=== PATIENT | female | born 1995 | race Caucasian/White ===

== ENCOUNTER → 2018-05-18 | Outpatient (CLI) | payer BC ==
[2018-05-18 09:58] LABS: HEMOGLOBIN A1C 5.4 % (4.5-5.6)
== END | disposition home or self-care (01) ==
LOC: C.LAB1850 08:14
PROVIDERS: ATTEND Family Medicine
DX: Z13.220 Encounter for screening for lipoid disorders (principal); Z83.3 Family history of diabetes mellitus

== ENCOUNTER 2021-01-27 07:30 | Inpatient (IN) ==
--- NOTE | 2021-01-26 14:36 | Anesthesiology Consultation ---
Date of Service January 26, 2021 Assessment & Plan (1) Encounter for pre-operative examination: Chart Review Chart Review: licensed direct entry midwife initiated Pt is a surrogate for her best friend. Pt's will be in the hospital room with patient initially for support. When patient is taken to OR- plan is "patient's will wait in waiting room and patient's best friend (mother of the baby) will be in the delivery/OR room with patient." Once baby is delivered and taken for additional exams- baby's biological mother will go with while surrogate mother will remain in OR and then up to hospital room for recovery (her will join her there). Per nursing assessment 01/26/21, patient resides in [facility]. Travels to [facility] for grocery shopping. Wears proper PPE. No known Covid positive contacts or Covid related symptoms. No known Covid infection in the past 90 days. Preop Covid testing done 01/22/21= negative. History Surgery Operation Date: 01/27/21 07:30 Proposed Procedures p Section in LD - Rohan Kurtz MD Height/Weight Height: 5 ft 3 in Weight: 92.986 kg Allergies Allergy/AdvReac Type Severity Reaction Status Date / Time No Known Allergies Allergy Verified 01/26/21 14:05 Medications Home Medications Medication Instructions Recorded Confirmed Last Taken levothyroxine 50 mcg capsule 50 mcg PO QAM 07/14/20 01/26/21 Unknown prenat.vits,susie,[id number] 1 tab PO QAM 07/14/20 01/26/21 Unknown Past Medical History Medical History Hypothyroidism related Surrogate In Vitro for best friend. Past Family History Family History Father Prostate cancer Dyslipidemia Other No family history of adverse response to anesthesia Past Surgical History Surgical History H/O wisdom tooth extraction History of ankle surgery Right ankle Social History Smoking Status: Never smoker Do You Dip or Chew Tobacco: No Hx Alcohol Use: Yes Alcohol type: beer and wine alcohol intake frequency: a few times a month Hx Substance Use: No substance use type: does not use
[2021-01-27 12:09] LABS: Hematocrit (blood only) 30.8 % (37-47); Hemoglobin 10.5 g/dL (12.0-16.0); Mean Corpuscular Hemoglobin 26.6 pg (25-34); Mean Platelet Volume 9.6 fL (7.4-10.4); Platelet Count 389 K/uL (130-400); RDW Coefficient of Variation 13.8 % (11.5-14.5); RDW Standard Deviation 39.4 fL (36.4-46.3); Red Blood Count 3.95 M/uL (4.2-5.4); White Blood Count 13.18 K/uL (4.8-10.8)
[2021-01-27 12:12] LABS: Mean Corpuscular Hgb Conc 34.1 g/dL (32-36)
--- NOTE | 2021-01-27 12:28 | History & Physical Report ---
Date of Service January 27, 2021 Assessment & Plan (1) Breech presentation: (2) Encounter for supervision of normal in multigravida, antepartum: Sintia is a 26-year-old at 39 weeks 3 days gestational age. Fetus is noted be in breech presentation which was confirmed on ultrasound today. Discussed options as noted per HPI. Risks and benefits of all options reviewed and questions answered to the patient and the biologic parents satisfaction. After thorough discussion of options patient has opted to proceed with external cephalic version followed by AA induction of labor if successful versus a C- section if unsuccessful. Consents for all procedures were reviewed and signed as noted per HPI. A reactive NST is noted. There was noted to be normal appearing amniotic fluid with multiple pockets greater than 4-5 cm and absence of nuchal cord. Blood type A positive. Normal size noted (3) resulting from in vitro fertilization, antepartum: Admission and Anticipated Discharge Date Admission Date: January 27, 2021 History of Present Illness Primary Care Provider: Umesh Kearneyedison Dutton is a 26-year-old presents is for delivery at 39 weeks 3 days gestational age. Patient was initially scheduled for an induction of labor today was noted to have breech presentation noted yesterday in clinic. An initial exam today was notable for persistent breech presentation by ultrasound. There was also noted to be normal amniotic fluid volumes noted in absence of nuchal cord on ultrasound. We discussed options yesterday in clinic including risks and benefits of the options. We spoke specifically discussed proceeding with a section versus a external cephalic version followed by a Caesarean section or induction of labor pending success. Risks of external cephalic version were extensively reviewed with the patient and the biologic parents. Multiple questions were answered to the patient's satisfaction. We once again reviewed the today the risks of bleeding, pain, bruising, injury, placental abruption including catastrophic placental abruption which c ould result in significant harm and , need for emergent Caesarean section, rupture of membranes resulting in cord prolapse, intolerance of procedure, and failure. Multiple questions were answered to the patient and the biologic parents satisfaction. Consents for the procedure were reviewed and signed. We also signed consents for Caesarean section in the event that the version is not successful. Discussed risks of Caesarean section detail. OB Labs: Blood Type A Positive 07/20/20 Antibody Screen NEGATIVE 07/20/20 Hemoglobin 13.7 g/dL (12.0-16.0) 07/20/20 Hematocrit 41.1 % (37-47) 07/20/20 Mean Corpuscular Volume 85.4 fL (80-100) 07/20/20 Platelet Count 373 K/uL (130-400) 07/20/20 Rubella IgG Antibody Immune (Immune) 07/20/20 Rapid Plasma Reagin Nonreactive (Nonreactive) 07/20/20 Hepatitis B Surface Antigen Neg (Neg) 07/20/20 HIV (1&2) Ab and P24 Ag, 4th Gener Neg (Neg) 07/20/20 Glucose 1 Hour 50 gm Load 108 mg/dl (70-130) 08/24/20 OB Optional Labs: Chlamydia trachomatis RNA NOT DETECTED (NOT DETECTED) 07/20/20 Neisseria gonorrhoeae RNA NOT DETECTED (NOT DETECTED) 07/20/20 Thyroid Stimulating Hormone (TSH) 0.695 uIu/ml (0.300-4.500) 07/20/20 Labs Reviewed: pregenetic implant testing was nl--[facility] declined --[facility] Allergies Allergy/AdvReac Type Severity Reaction Status Date / Time No Known Allergies Allergy Verified 01/26/21 14:05 Home Medications Medication Instructions Recorded Confirmed Type levothyroxine 50 mcg capsule 50 mcg PO QAM 07/14/20 01/27/21 History prenat.vits,susie,[id number] 1 tab PO QAM 07/14/20 01/27/21 History Patient History Medical History Hypothyroidism related Surrogate In Vitro for best friend. Surgical History H/O wisdom tooth extraction History of ankle surgery Right ankle Family History Father Prostate cancer Dyslipidemia Other No family history of adverse response to anesthesia Social History Smoking Status: Never smoker Second Hand Exposure: No; Do You Dip or Chew Tobacco: No; Tobacco Cessation Education Requested by Patient: No Hx Alcohol Use: Yes (not during ) Alcohol type: beer and wine Hx Substance Use: No Preferred Language: Nam[place]ian Communication Ability: Effective Cottage Parent Required: No Beliefs That Will Affect Care: None marital status: marital status details: Rodney (36) [phone] Current Living Situation: Spouse and Family Current Living Situation Comment: lives with Spouse, daughter, 1 dog. current occupational status: employed current occupation: assurance auditor Other Information That Helps Us Care for You: No Feels Safe at Home: Yes Safety Concerns: Feels Safe At This Time Assistive Devices: None Physical Exam Physical Exam: Portions of exam are from prior visit. Constitutional: WD/WN, vitals as above well developed, well nourished and + well hydrated; no acute distress Neck: trachea midline, no thyromegaly Respiratory: normal respiratory effort, lungs clear to auscultation no respiratory distress, no labored breathing and no cough Cardiovascular: RRR, no murmur, no edema Heart Sounds: normal S1 and normal S2 Gastrointestinal (Abdomen): normal bowel sounds, soft, nontender, no hepatosplenomegaly Inspection/Auscultation: abdomen not distended and no abdominal edema Musculoskeletal: no cyanosis or clubbing, extremities motor strength 5/5 Head/Neck/Chest: + head abnormal to inspection Skin: no rashes, warm and dry normal turgor Neurologic: PERRL, EOMI, accommodation nl, no face palsy, no dysarthria normal touch/pain/proprioception Psychiatric: A+Ox3, euthymic affect Apperance: appropriately dressed and appropriately groomed Genitourinary: no vaginal lesions, no adnexal mass normal external appearance and normal appearance of the urethra; no external lesions, no external swelling, no external erythema and no external laceration Speculum/Bimanual Exam: normal bimanual exam, normal appearance of the vagina and normal appearance of the cervix; no abnormal cervical discharge, no cervical lesions, no cervical tenderness, no adnexal tenderness, no vaginal tenderness, no vaginal bleeding, no cervical motion tenderness, uterus nontender, no cul-de-sac fullness, no cul-de-sac tenderness and no cul-de-sac nodularity OB Exam Abdomen: + breech (Footling breech By ultrasound) OB Exam Monitor Tracing: + external FHT monitor used, + external uterine monitor used, + category I and + normal FHT variability; no early decelerations present, no late decelerations present and no variable decelerations Reactive NST Lymphatic: no cervical or axillary lymphadenopathy Coding Level of Care Code None Diagnoses Breech presentation O32.1XX0 Encounter for supervision of normal in multigravida, antepartum Z34.80 resulting from in vitro fertilization, antepartum O09.819
[2021-01-27] MEDS ORDERED: LACTATED RINGER'S 1,000 ML IV ONE (13:09)
[2021-01-27] MEDS ORDERED: CITRIC ACID/SODIUM CITRATE 15 ML UDC ONE (13:11)
[2021-01-27] MEDS ORDERED: fentaNYL citrate 100 MCG/2 ML VIAL ONE (15:33)
[2021-01-27] MEDS ORDERED: NALOXONE HCL 1 MG in SODIUM CHLORIDE 0.9% 1000ML 1,000 ML IV PRN (16:09)
[2021-01-27] MEDS ORDERED: NALOXONE HCL 0.4 MG/1 ML VIAL/CARP IV PRN (16:09)
[2021-01-27] MEDS ORDERED: ONDANSETRON INJ 2 MG/ML 2 ML VIAL IV PRN (16:09)
[2021-01-27] MEDS ORDERED: ePHEDrine sulfate 50 MG/ML AMP IV PRN (16:09)
[2021-01-27] MEDS ORDERED: diphenhydrAMINE 50 MG/ML VIAL IV PRN (16:09)
[2021-01-27] MEDS: fentaNYL 2MCG/ML ROPIVACAINE 1.25MG/ML 100 ML BAG EPI PRN ×2 (16:26→22:02)
[2021-01-27] MEDS ORDERED: OXYTOCIN 30 UNITS/500 ML BAG IV PRN ×3 (16:37→23:57)
--- NOTE | 2021-01-27 16:50 | Labor Progress Brief Note ---
Date of Service January 27, 2021 Subjective Reason For Note: Routine Evaluation IOL following successful ECV Assessment & Plan (1) Encounter for supervision of normal in multigravida, antepartum: Sintia is a 26-year-old at 39 weeks 3 days gestational age. ECV successful. Transition to IOL. 1. Fetus: Cat 1. Reactive NST 2. Labor: Start IOL. AROM clr. Start Pitocin per protocol 3. GBS negative 4. Vitals: WNL (2) resulting from in vitro fertilization, antepartum: Admission and Anticipated Discharge Date Admission Date: January 27, 2021 Physical Exam Genitourinary: OB Exam Abdomen: + vertex (by US prior to rupture) Manual OB Exam: + cervical dilation 2 cm, + cervical effacement 50%, + station -2 and + amniotic fluid clear OB Exam Monitor Tracing: + external FHT monitor used, + external uterine monitor used, + category I and + normal FHT variability; no early decelerations present, no late decelerations present and no variable decelerations Results & Data ([facility]) Vital Signs (Past 12 Hours) Vital Signs Temp Pulse Resp BP Pulse Ox 01/27/21 16:42 99 H 127/72 01/27/21 16:38 84 97 01/27/21 16:37 85 123/64 01/27/21 16:33 87 98 01/27/21 16:32 89 116/78 01/27/21 16:28 86 97 01/27/21 16:27 79 139/78 93 01/27/21 16:23 95 H 97 01/27/21 16:22 83 126/78 01/27/21 16:18 91 H 98 01/27/21 16:15 87 124/80 01/27/21 16:13 93 H 98 01/27/21 15:34 89 96 01/27/21 15:29 106 H 96 01/27/21 15:24 100 H 97 01/27/21 15:19 89 97 01/27/21 15:14 90 96 01/27/21 15:09 100 H 97 01/27/21 15:04 36.8 C 96 H 18 109/67 97 01/27/21 15:00 100 H 94 01/27/21 14:59 83 97 01/27/21 14:54 94 H 96 01/27/21 14:49 100 H 96 04/07/21 14:44 93 H 97 01/27/21 14:39 84 96 01/27/21 14:34 96 H 97 01/27/21 14:29 95 H 97 01/27/21 14:24 94 H 95 01/27/21 14:19 101 H 95 01/27/21 14:14 94 H 98 01/27/21 14:09 101 H 96 01/27/21 14:04 94 H 95 01/27/21 13:59 95 H 96 01/27/21 13:54 94 H 96 01/27/21 13:49 91 H 96 01/27/21 13:44 91 H 96 01/27/21 13:39 91 H 95 01/27/21 13:38 82 94 01/27/21 13:34 93 H 97 01/27/21 13:29 86 98 01/27/21 11:15 107 H 116/81 01/27/21 11:09 36.6 C 18 Coding Level of Care Code None Diagnoses Encounter for supervision of normal in multigravida, antepartum Z34.80 resulting from in vitro fertilization, antepartum O09.819
[2021-01-27] MEDS ORDERED: LACTATED RINGER'S 1,000 ML IV SCH (17:30)
--- NOTE | 2021-01-27 20:48 | Labor Progress Brief Note ---
Date of Service January 27, 2021 Subjective Reason For Note: Routine Evaluation Assessment & Plan (1) Encounter for supervision of normal in multigravida, antepartum: Sintia is a 26-year-old at 39 weeks 3 days gestational age. ECV s uccessful. Transition to IOL. 1. Fetus: Cat 1. Reactive NST 2. Labor: AROM clr. Pitocin per protocol 3. GBS negative 4. Vitals: WNL (2) resulting from in vitro fertilization, antepartum: Admission and Anticipated Discharge Date Admission Date: January 27, 2021 Physical Exam Genitourinary: OB Exam Abdomen: + vertex Manual OB Exam: + cervical dilation 3 cm, + cervical effacement 70%, + station -1 and + amniotic fluid clear OB Exam Monitor Tracing: + external FHT monitor used, + external uterine monitor used, + category I and + normal FHT variability; no early decelerations present, no late decelerations present and no variable decelerations Results & Data ([facility]) Vital Signs (Past 12 Hours) Vital Signs Temp Pulse Resp BP Pulse Ox 01/27/21 20:43 67 97 01/27/21 20:38 79 97 01/27/21 20:33 80 96 01/27/21 20:28 67 96 01/27/21 20:24 87 125/80 01/27/21 20:23 92 H 96 01/27/21 20:18 82 97 01/27/21 20:13 78 95 01/27/21 20:09 75 125/77 01/27/21 20:08 99 H 99 01/27/21 20:03 87 98 01/27/21 19:58 85 98 01/27/21 19:55 92 H 107/72 01/27/21 19:53 92 H 96 01/27/21 19:48 71 98 01/27/21 19:43 89 97 01/27/21 19:39 77 109/68 01/27/21 19:38 81 97 01/27/21 19:33 73 97 01/27/21 19:28 79 98 01/27/21 19:24 72 108/69 01/27/21 19:23 75 96 01/27/21 19:18 90 97 01/27/21 19:13 77 97 01/27/21 19:09 36.8 C 75 18 110/69 01/27/21 19:08 74 97 01/27/21 19:03 82 97 01/27/21 18:58 73 96 01/27/21 18:54 80 102/57 L 01/27/21 18:53 75 96 01/27/21 18:48 79 97 01/27/21 18:43 78 97 01/27/21 18:40 16 01/27/21 18:39 81 102/58 L 01/27/21 18:38 66 96 01/27/21 18:33 69 96 01/27/21 18:28 67 96 01/27/21 18:26 36.7 C 18 01/27/21 18:24 81 106/67 01/27/21 18:23 81 97 01/27/21 18:22 75 94 01/27/21 18:18 73 98 01/27/21 18:13 78 98 01/27/21 18:08 76 18 96 01/27/21 18:05 77 105/55 L 01/27/21 18:03 81 96 01/27/21 18:02 80 119/57 L 01/27/21 17:58 94 H 98 01/27/21 17:56 74 101/56 L 01/27/21 17:53 89 97 01/27/21 17:51 96 H 107/58 L 01/27/21 17:48 81 97 01/27/21 17:45 90 95/54 L 01/27/21 17:43 97 H 96 01/27/21 17:40 85 16 103/60 01/27/21 17:38 81 97 01/27/21 17:35 88 103/60 01/27/21 17:33 78 97 01/27/21 17:30 97 H 104/61 01/27/21 17:28 92 H 96 01/27/21 17:26 80 108/63 01/27/21 17:23 88 96 01/27/21 17:21 81 108/63 01/27/21 17:18 97 H 97 01/27/21 17:16 101 H 98/60 L 01/27/21 17:13 106 H 97 01/27/21 17:11 86 123/68 01/27/21 17:10 16 01/27/21 17:08 99 H 97 01/27/21 17:07 88 116/69 01/27/21 17:03 92 H 95 01/27/21 17:01 88 128/69 01/27/21 16:58 88 96 01/27/21 16:57 95 H 122/69 01/27/21 16:53 105 H 96 01/27/21 16:51 84 121/72 01/27/21 16:48 81 96 01/27/21 16:47 96 H 129/80 01/27/21 16:44 36.8 C 20 01/27/21 16:43 101 H 97 01/27/21 16:42 99 H 127/72 01/27/21 16:38 84 97 01/27/21 16:37 85 123/64 01/27/21 16:33 87 98 01/27/21 16:32 89 116/78 01/27/21 16:28 86 97 01/27/21 16:27 79 139/78 93 01/27/21 16:23 95 H 97 01/27/21 16:22 83 126/78 01/27/21 16:18 91 H 98 01/27/21 16:15 87 124/80 01/27/21 16:13 93 H 98 01/27/21 15:34 89 96 01/27/21 15:29 106 H 96 01/27/21 15:24 100 H 97 01/27/21 15:19 89 97 01/27/21 15:14 90 96 01/27/21 15:09 100 H 97 01/27/21 15:04 36.8 C 96 H 18 109/67 97 01/27/21 15:00 100 H 94 01/27/21 14:59 83 97 01/27/21 14:54 94 H 96 01/27/21 14:49 100 H 96 01/27/21 14:44 93 H 97 01/27/21 14:39 84 96 01/27/21 14:34 96 H 97 01/27/21 14:29 95 H 97 01/27/21 14:24 94 H 95 01/27/21 14:19 101 H 95 01/27/21 14:14 94 H 98 01/27/21 14:09 101 H 96 01/27/21 14:04 94 H 95 01/27/21 13:59 95 H 96 01/27/21 13:54 94 H 96 01/27/21 13:49 91 H 96 01/27/21 13:44 91 H 96 01/27/21 13:39 91 H 95 01/27/21 13:38 82 94 01/27/21 13:34 93 H 97 01/27/21 13:29 86 98 01/27/21 11:15 107 H 116/81 01/27/21 11:09 36.6 C 18 Coding Level of Care Code None Diagnoses Encounter for supervision of normal in multigravida, antepartum Z34.80 resulting from in vitro fertilization, antepartum O09.819
[2021-01-27] MEDS ORDERED: CALCIUM CARBONATE 500 MG CHEWABLE TAB PO PRN ×2 (21:42→21:43)
[2021-01-27] MEDS ORDERED: CALCIUM CARBONATE 500 MG CHEWABLE TAB ONE (21:46)
[2021-01-27] MEDS ORDERED: HYDROCORTISONE ACETATE 25 MG SUPP PR PRN (23:57)
[2021-01-27] MEDS ORDERED: BENZOCAINE 20% AER SPR 82.5 GM CAN EXT PRN (23:57)
[2021-01-27] MEDS ORDERED: DIPHTHERIA/TETANUS/PERTUSSIS 0.5 ML SYR/VIAL IM ONE (23:57)
[2021-01-27] MEDS ORDERED: ACETAMINOPHEN 325 MG TAB PO PRN (23:57)
[2021-01-27] MEDS ORDERED: SUPERCREAM 0.870% 15 GM JAR EXT PRN (23:57)
[2021-01-27] MEDS ORDERED: bisacodyL 10 MG SUPP PR PRN (23:57)
[2021-01-28] MEDS: IBUPROFEN 600 MG TAB PO PRN ×3 (00:29→12:50)
--- NOTE | 2021-01-28 03:11 | Operative Report (OR) ---
DATE OF OPERATION: 01/27/2021 PROCEDURE: External cephalic version. SURGEON: Rohan Kurtz MD. PREOPERATIVE DIAGNOSIS: Breech presentation at term. POSTOPERATIVE DIAGNOSIS: Successful external cephalic version post procedure. ESTIMATED BLOOD LOSS: None. COMPLICATIONS: None. FINDINGS: Reactive NST prior to the procedure. Normal heart tones noted following procedure. INDICATIONS: The patient is a 26-year-old G2, P1 presented today for external cephalic version secondary to known breech presentation with planned delivery following procedure. The patient was consented for the external cephalic version including extensive discussion of risks. DESCRIPTION OF PROCEDURE: The patient was taken to the operating room with plan to proceed with a section if version is unsuccessful. The patient was given an epidural anesthesia, which will be used to increase the success rate of the version and would be used for section or labor in the eventual outcome. After the patient was fully prepped for the procedure, an ultrasound was once again performed and noted breech presentation with head in maternal right upper quadrant with bottom in the lower uterine segment and likely footling breech presentation. Gentle traction was applied pushing the baby out of the pelvis and gentle rotational force was applied at both the bottom and head turning the baby into cephalic presentation. Gentle traction force was maintained to avoid any injury. Ultrasound following the first attempt was notable for fetus in cephalic presentation. heart rate was obtained and was noted to be normal. Decision was made to end the procedure. The patient was taken back up to the labor room for further care and induction of labor. I attest to the content of the Intraoperative Record and any orders documented therein. Any exception s are noted below.
[2021-01-28] MEDS ORDERED: CEFAZOLIN 3000 MG IV SCH (06:00)
[2021-01-28] MEDS ORDERED: CITRIC ACID/SODIUM CITRATE 15 ML UDC PO SCH (06:00)
[2021-01-28] MEDS: LEVOTHYROXINE SODIUM 50 MCG TABLET PO SCH (06:05)
--- NOTE | 2021-01-28 06:24 | Obstetrical Progress Note ---
Date of Service <Malachi Sadler MD - Last Filed: 01/28/21 07:18> January 28, 2021 Assessment & Plan <Malachi Sadler MD - Last Filed: 01/28/21 07:18> (1) Surrogate : Sintia is a 26 y/o female who is now PPD #1 following successful ECV on 01/27 and thereafter IOL, with subsequent at 39 weeks. This was the result of successful IVF in the context of surrogacy. - Feels well today. Eating well, voiding well, ambulating well. - Pain well controlled with ibuprofen 600mg Q4H PRN. - Routine PPD care -- OOB, ambulation as tolerated - After discharge will have [address] Kurtz (2) resulting from in vitro fertilization, antepartum: Subjective <Malachi Sadler MD - Last Filed: 01/28/21 07:18> Sintia is a 26 y/o female who is now PPD #1 following successful ECV on 01/27 and thereafter IOL, with subsequent at 39 weeks. Reports feeling well overall this morning. Endorses mild abdominal cramping with pain well managed on analgesics. Voiding without difficulty. Tolerating meals well and able to ambulate some. Endorses passing gas. Some persistent lochia with some improvement this morning. Bottle feeding without difficulty. Review of Systems Denies fever, chills, sweats Denies shortness of breath, difficulty breathing, chest pain, palpitations, chest pressure. Denies breast pain. Denies dysuria. Denies headache or changes in vision. Physical Exam <Malachi Sadler MD - Last Filed: 01/28/21 07:18> General: Alert, oriented. No acute distress. Cardiac: Regular rate and rhythm, no murmurs/rubs/gallops. Respiratory: Clear to auscultation bilaterally a/p, no wheezes/rales/rhonchi. No increased work of breathing. Symmetrical chest rise. No respiratory distress. Abdomen: Soft, nontender, nondistended. Bowel sounds present. Uterus: Uterine fundus firm, palpable 1-2 cm below umbilicus. Lower Extremities: No lower extremity edema or swelling. No deep calf pain. Fe's negative bilaterally. Results & Data ([facility]) <Malachi Sadler MD - Last Filed: 01/28/21 07:18> Vital Signs (Past 12 Hours) Vital Signs Temp Pulse Pulse Resp BP BP Pulse Ox 01/28/21 02:20 36.8 C 90 20 131/79 96 01/28/21 01:54 94 H 18 125/81 01/28/21 01:39 77 122/73 01/28/21 01:24 85 18 126/81 01/28/21 01:09 88 131/84 01/28/21 00:54 98 H 18 143/90 H 01/28/21 00:39 99 H 18 127/80 01/28/21 00:24 77 18 127/81 01/28/21 00:09 82 18 119/69 01/27/21 23:54 36.8 C 102 H 18 127/72 01/27/21 23:48 104 H 94 01/27/21 23:47 100 H 94 01/27/21 23:43 100 H 96 01/27/21 23:40 106 H 94 01/27/21 23:39 94 H 119/77 01/27/21 23:38 94 H 94 01/27/21 23:34 92 H 94 01/27/21 23:33 93 H 95 01/27/21 23:28 105 H 100 01/27/21 23:24 103 H 109/71 01/27/21 23:23 101 H 98 01/27/21 23:18 97 H 96 01/27/21 23:13 101 H 97 01/27/21 23:09 76 135/85 01/27/21 23:08 96 H 95 01/27/21 23:03 83 99 01/27/21 22:58 90 100 01/27/21 22:55 93 H 134/89 01/27/21 22:53 110 H 100 01/27/21 22:48 96 H 100 01/27/21 22:43 86 100 01/27/21 22:39 93 H 130/86 01/27/21 22:38 89 100 01/27/21 22:33 93 H 100 01/27/21 22:28 85 100 01/27/21 22:24 85 123/82 01/27/21 22:23 89 100 01/27/21 22:20 90 92 01/27/21 22:18 78 99 01/27/21 22:13 92 H 99 01/27/21 22:10 100 H 132/94 01/27/21 22:08 103 H 100 01/27/21 22:03 112 H 99 01/27/21 21:58 96 H 97 01/27/21 21:53 146 H 100 01/27/21 21:52 82 88 L 01/27/21 21:48 77 100 01/27/21 21:43 78 98 01/27/21 21:40 81 129/84 01/27/21 21:38 88 98 01/27/21 21:33 82 99 01/27/21 21:29 72 94 01/27/21 21:28 79 99 01/27/21 21:24 76 122/83 01/27/21 21:23 72 99 01/27/21 21:18 73 100 01/27/21 21:13 77 97 01/27/21 21:10 82 134/89 01/27/21 21:08 87 67 L 01/27/21 21:07 87 92 01/27/21 21:03 67 99 01/27/21 20:58 74 100 01/27/21 20:54 36.5 C 67 18 116/72 01/27/21 20:53 68 97 01/27/21 20:52 72 91 01/27/21 20:48 61 98 01/27/21 20:45 68 91 01/27/21 20:43 67 97 01/27/21 20:38 79 97 01/27/21 20:33 80 96 01/27/21 20:28 67 96 01/27/21 20:24 87 125/80 01/27/21 20:23 92 H 96 01/27/21 20:18 82 97 01/27/21 20:13 78 95 01/27/21 20:09 75 125/77 01/27/21 20:08 99 H 99 01/27/21 20:03 87 98 01/27/21 19:58 85 98 01/27/21 19:55 92 H 107/72 01/27/21 19:53 92 H 96 01/27/21 19:48 71 98 01/27/21 19:43 89 97 01/27/21 19:39 77 109/68 01/27/21 19:38 81 97 01/27/21 19:33 73 97 01/27/21 19:28 79 98 01/27/21 19:24 72 108/69 01/27/21 19:23 75 96 01/27/21 19:18 90 97 01/27/21 19:13 77 97 01/27/21 19:09 36.8 C 75 18 110/69 01/27/21 19:08 74 97 01/27/21 19:03 82 97 01/27/21 18:58 73 96 01/27/21 18:54 80 102/57 L 01/27/21 18:53 75 96 01/27/21 18:48 79 97 01/27/21 18:43 78 97 01/27/21 18:40 16 01/27/21 18:39 81 102/58 L 01/27/21 18:38 66 96 01/27/21 18:33 69 96 01/27/21 18:28 67 96 01/27/21 18:26 36.7 C 18 01/27/21 18:24 81 106/67 01/27/21 18:23 81 97 01/27/21 18:22 75 94 <Rohan Kurtz MD - Last Filed: 01/28/21 08:26> Co-Signing Physician Notes Patient seen and evaluated and agree with the above findings and plan. Routine care Resident Activity Tracking <Malachi Sadler MD - Last Filed: 01/28/21 07:18> Resident Involvement: Resident Care Provided Care Provided: Adult Hospital Medicine and OB Delivery
[2021-01-28 06:54] LABS: Hematocrit (blood only) 27.3 % (37-47)
[2021-01-28] MEDS: PRENATAL VITAMIN 1 TAB PO SCH (08:28)
[2021-01-28] MEDS: DOCUSATE SODIUM 100 MG CAP PO SCH ×2 (08:28→23:06)
--- NOTE | 2021-01-28 11:06 | Anesthesia Procedure Note ---
Date of Service January 28, 2021 Anesthesia Post Epidural Note Vital Signs Vital Signs: Temp Pulse Resp BP Pulse Ox 36.6 C 73 18 114/80 97 01/28/21 07:34 01/28/21 07:34 01/28/21 07:34 01/28/21 07:34 01/28/21 07:34 Pain Intensity Bilateral Lower Abdomen: Pain Intensity: 2 Lower Back: Pain Intensity: 3 Notes Mental Status: alert / awake / arousable and participated in evaluation Patient Amnestic to Procedure: Yes Nausea / Vomiting: adequately controlled Pain: adequately controlled Airway Patency, RR, SpO2: stable & adequate BP & HR: stable & adequate Hydration State: stable & adequate Anesthetic Complications: no major complications apparent and Pt Satisfied with anesthetic care
--- NOTE | 2021-01-28 12:50 | Delivery Summary ---
DATE OF OPERATION: 01/27/2021 PROCEDURE: Normal spontaneous vaginal delivery, second-degree perineal laceration repair. SURGEON: Rohan Kurtz MD. PREOPERATIVE DIAGNOSES: 1. Single intrauterine at 39 weeks 3 days gestational age. 2. Elective induction of labor. 3. Status post external cephalic version. 4. In vitro fertilization . POSTOPERATIVE DIAGNOSES: 1. Single intrauterine at 39 weeks 3 days gestational age. 2. Elective induction of labor. 3. Status post external cephalic version. 4. In vitro fertilization . 5. Status post delivery. ESTIMATED BLOOD LOSS: 300 mL. DRAINS: None. FLUIDS: Continuous lactated Ringer. URINE OUTPUT: None. COMPLICATIONS: None. FINDINGS: Viable male infant with weight and Apgars pending. INDICATIONS: The patient is a 26-year-old G2, P1, admitted at 39 weeks 3 days gestational age for delivery. The patient was known breech position and opted for an external cephalic version, which was successful and then subsequently underwent induction of labor. Labor course was started with rupture of membranes to ensure cephalic position and oxytocin per regular protocol. The patient progressed in labor rapidly and epidural was placed at time of ECV and was continued throughout her labor process. The patient pushed for approximately 28 minutes to achieve delivery. DESCRIPTION OF PROCEDURE: The patient progressed to 10 cm dilated, 100% effaced, +2 station, pushed over intact perineum with epidural anesthesia and delivered a viable male infant, weight and Apgars as noted above. Head of the delivered in MICHAELA position, restituted to left transverse. No nuchal cord was noted. Body and shoulders quickly followed. was noted to be moderately vigorous shortly after delivery. A 1-minute delayed cord clamping was initiated. Cord was then double clamped and cut. was then taken to the waiting nursery staff for further evaluation due to labored respirations secondary to amniotic fluid aspirations. did quickly become vigorous after evaluation by the nursery staff. The attention was then turned to delivery of placenta, which was delivered intact with 3-vessel cord, gentle cord traction. On inspection of the perineum, vagina, and cervix, there was noted to be second degree perineal laceration. This was repaired with 3-0 Vicryl in traditional crown stitch. Needle, sponge and instrument counts were correct at the completion of the case with mother and stable in the immediate post-delivery period. I attest to the content of the Intraoperative Record and any orders documented therein. Any exception s are noted below.
[2021-01-28] MEDS ORDERED: bisacodyL 5 MG TABEC PO SCH (20:00)
--- NOTE | 2021-01-29 05:21 | Obstetrical Progress Note ---
Date of Service <Malachi Sadler MD - Last Filed: 01/29/21 06:09> January 29, 2021 Assessment & Plan <Malachi Sadler MD - Last Filed: 01/29/21 06:09> (1) Surrogate : Sintia is a 26 y/o female who is now PPD #2 following successful ECV on 01/27 and thereafter IOL, with subsequent at 39 weeks. This was the result of successful IVF in the context of surrogacy. - Feels well today. Eating well, voiding well, ambulating well. - Pain well controlled with ibuprofen 600mg Q4H PRN. - Routine PPD care -- OOB, ambulation as tolerated - Anticipate d/c today - After discharge will have [address] Kurtz (2) resulting from in vitro fertilization, antepartum: Subjective <Malachi Sadler MD - Last Filed: 01/29/21 06:09> Sintia is a 26 y/o female who is now PPD #2 following ECV with subsequent IOL and at 39 weeks. Reports feeling well overall this morning. Endorses mild abdominal cramping with pain well managed on analgesics. Voiding without difficulty. Tolerating meals well and able to ambulate some. Some persistent lochia with some improvement this morning. Baby with parents, doing well per Sintia (surrogate) Review of Systems Denies fever, chills, sweats Denies shortness of breath, difficulty breathing, chest pain, palpitations, chest pressure. Denies breast pain. Denies dysuria. Denies headache or changes in vision. Physical Exam <Malachi Sadler MD - Last Filed: 01/29/21 06:09> General: Alert, oriented. No acute distress. Cardiac: Regular rate and rhythm, no murmurs/rubs/gallops. Respiratory: Clear to auscultation bilaterally a/p, no wheezes/rales/rhonchi. No increased work of breathing. Symmetrical chest rise. No respiratory distress. Abdomen: Soft, nontender, nondistended. Bowel sounds present. Uterus: Uterine fundus firm, palpable 1-2 cm below umbilicus. Lower Extremities: No lower extremity edema or swelling. No deep calf pain. Fe's negative bilaterally. Results & Data ([facility]) <Malachi Sadler MD - Last Filed: 01/29/21 06:09> Vital Signs (Past 12 Hours) Vital Signs Temp Pulse Resp BP Pulse Ox 01/28/21 23:10 36.6 C 92 H 16 117/79 96 01/28/21 19:20 36.8 C 81 18 119/69 99 <Elida Wilcox DO - Last Filed: 01/29/21 06:52> Co-Signing Physician Notes Resident Physician Supervision Note: I was present with Dr. Sadler during the history and exam. I discussed the case with the resident and agree with the findings and plan as documented in the note. Any exceptions or clarifications are listed here: PPD#2 doing well, no concerns. DC home today. Reviewed DC instructions. Documented By: Elida Wilcox DO Resident Activity Tracking <Malachi Sadler MD - Last Filed: 01/29/21 06:09> Resident Involvement: Resident Care Provided Care Provided: Adult Hospital Medicine and OB Delivery
[2021-01-29] MEDS: LEVOTHYROXINE SODIUM 50 MCG TABLET PO SCH (06:06)
[2021-01-29] MEDS ORDERED: FERROUS SULFATE 325 MG TAB PO SCH (08:00)
[2021-01-29] MEDS: DOCUSATE SODIUM 100 MG CAP PO SCH (08:06)
[2021-01-29] MEDS: PRENATAL VITAMIN 1 TAB PO SCH (08:07)
== END 2021-01-29 13:25 | disposition home or self-care (01) | DRG 807 ==
LOC: EDSTATUS 07:30 → 4S1 10:58 → 4S2 01-28 02:21